=== PATIENT | female | born 1995 | race Caucasian/White ===

== ENCOUNTER 2017-08-16 10:23 | Emergency (ER) | payer OTHER ==
[~2017-08-16] VITALS: Ht 149.9 cm; Wt 61.6 kg
[2017-08-16 10:29] VITALS: TEMP 36.9; Ht 149.9 cm; Wt 61.6 kg
[2017-08-16] MEDS ORDERED: ONDANSETRON INJ 2 MG/ML 2 ML VIAL IV STA (11:34)
[2017-08-16] MEDS ORDERED: KETOROLAC TROMETHAMINE 30 MG/ML VIAL IV STA (11:34)
[2017-08-16] MEDS ORDERED: ALBUT/IPRATROP 3MG/0.5MG NEB 3 ML VIAL INH STA (11:34)
[2017-08-16] MEDS ORDERED: PSEUDOEPHEDRINE HCL 30 MG TAB PO STA (11:34)
[2017-08-16] MEDS ORDERED: METHYLPREDNISOLONE 125 MG VIAL IV STA (11:34)
[2017-08-16] MEDS ORDERED: SODIUM CHLORIDE 0.9% 1000ML 1,000 ML IV ONE (11:45)
[2017-08-16] MEDS ORDERED: BENZONATATE 100MG CAP PO ONE (11:45)
[2017-08-16] MEDS ORDERED: BCPILLS PO (12:36)
[2017-08-16] MEDS ORDERED: AMPH30CA3 PO (12:37)
--- NOTE | 2017-08-16 12:59 | DIAGNOSTIC IMAGING REPORT ---
PA CHEST RADIOGRAPH AND UPRIGHT AND SUPINE AP RADIOGRAPHS OF THE ABDOMEN CLINICAL HISTORY: URI symptoms and ongoing abdominal pain. COMPARISON STUDY: No previous studies for comparison. FINDINGS: Lung volumes are normal. Lungs are clear. No pneumothorax or pleural effusion is noted. Cardiac size is normal. Mediastinal contours are normal. There is no evidence for pulmonary edema. No free air is evident. The bowel gas pattern is normal. IMPRESSION: 1. No free air or evidence of bowel obstruction. 2. No acute cardiopulmonary findings. Electronically signed by: Jun Padron M.D. 08/16/2017 12:57 PM Dictated Date/Time: 08/16/2017 12:56 PM
[2017-08-16 13:04] LABS: BASO % 0.1 %; BASO ABS # 0.01 K/uL (0-0.2); EOS % 0.1 %; EOS ABS # 0.01 K/uL (0-0.5); HEMATOCRIT 40.5 % (37-47); HEMOGLOBIN 13.6 g/dL (12.0-16.0); IG# 0.02 K/uL (0.00-0.02); LYMPH % 5.1 %; LYMPH ABS # 0.34 K/uL (1.2-3.4); MEAN CELL VOLUME 91.8 fL (80-100); MEAN CORPUSCULAR HEMOGLOBIN 30.8 pg (25-34); MEAN CORPUSCULAR HGB CONC 33.6 g/dl (32-36); MEAN PLATELET VOLUME 9.6 fL (7.4-10.4); MONO % 5.6 %; MONO ABS # 0.38 K/uL (0.11-0.59); NEUT % 88.8 %; NEUT ABS # 5.97 K/uL (1.4-6.5); PLATELET COUNT 272 K/uL (130-400); RED CELL DISTRIBUTION WIDTH CV 12.7 % (11.5-14.5); RED CELL DISTRIBUTION WIDTH SD 42.8 fL (36.4-46.3); WHITE BLOOD COUNT 6.73 K/uL (4.8-10.8)
[2017-08-16 13:22] LABS: ALBUMIN 4.5 gm/dl (3.4-5.0); CALCIUM 9.9 mg/dl (8.5-10.1); CREATININE 0.84 mg/dl (0.60-1.20); POTASSIUM 3.3 mmol/L (3.5-5.1)
[2017-08-16 13:25] LABS: TOTAL PROTEIN 8.9 gm/dl (6.4-8.2)
[2017-08-16 13:50] LABS: INFLUENZA B ANTIGEN Neg for Influ B (NEG)
[2017-08-16] MEDS ORDERED: OSEL75CA12 PO (14:23)
[2017-08-16] MEDS ORDERED: ZNTT/150 PO (14:23)
[2017-08-16 14:56] VITALS: BP 123/79; PULSE 102; O2SAT 96
--- NOTE | 2017-08-17 00:24 | EMERGENCY ROOM VISIT NOTE ---
ED Visit Note First contact with patient: 11:17 Chief Complaint: I'm here for 2 things first last night he started having fevers , chills and headache and since I have been having stomach pain. History of Present Illness: Ms. Bianchi is a 22-year-old white female who ambulates into the ED accompanied by a male friend with complaining of upper respiratory tract symptoms and abdominal pain. Patient reports last night she felt like she had an acute onset of fever and then developed a bifrontal headache, nonproductive cough, chills and body aches. Since that time the symptoms have been constant. She describes her bifrontal headache as a throbbing sensation. She rates her discomfort 7/10. Her pain is nonradiating. She has not identified any aggravating or alleviating factors related to the pain. She has not taken a medication for pain prior to arrival at the hospital. Associated with her headache as previously noted she reports she has perceived fevers but has not checked her temperature, body aches predominantly in the thoracic back and larger joints, sinus congestion, nasal drainage, bilateral ear pressure, nonproductive cough Additionally she reports since , approximately 2 months ago, she reports she has been having daily abdominal pain associated with decreased appetite and vomiting. She places her abdominal pain in the deon-umbilical area. She describes her pain as a pressure sensation. At its worst she rates her discomfort 7/10. Her pain is nonradiating. The pain has not been constant but does wax and wane in intensity and seems more prominent shortly after waking. She has not taken any medications for pain prior to arrival at the hospital. The vomiting she reports as bilious. Historically patient does report while she was a teenager she overdosed on acetaminophen and did have some liver damage. She denies previous gastrointestinal disorders, abdominal surgeries, fevers, chills, sweats, chest pain, shortness of breath, diarrhea, constipation, rectal bleeding, black/tarry stools, urinary symptoms, hematuria, back/flank pain. Review of Systems: As noted above in history of present illness. All body systems were reviewed and found to be negative as noted above. Past Medical History: Attention deficit disorder, status post adenoidectomy. Current Medications: control, Adderall XR. Allergies to Medications: Patient denies. Social History: Patient is currently University student; she feels safe in her home environment; she denies tobacco use and admits to alcohol use. Physical Examination: Vital Signs: Date Time Temp Pulse Resp B/P (MAP) Pulse Ox O2 Delivery O2 Flow Rate FiO2 08/16/17 14:56 102 123/79 96 08/16/17 13:16 08/16/17 13:11 122 115/80 122 121/90 112 119/77 08/16/17 12:35 115 22 118/79 94 Room Air 08/16/17 10:29 36.9 121 20 113/73 99 Room Air GENERAL: 22-year-old female in mild to moderate distress due to pain, nontoxic- appearing, afebrile and hemodynamically stable. NEUROLOGICAL: Awake, alert and oriented to person, place and time. Answering questions appropriately and following commands. Normal gait. Good hand eye coordination. No focal motor or sensory deficits. SKIN: Warm, dry and pink. No soft tissue eruptions or trauma noted. HEENT: Atraumatic and normocephalic. Mild tenderness but no erythema over the frontal and maxillary sinuses. External ears are nontender. Auditory canals are pink and patent. Tympanic membranes are pearly carrizales with normal light reflex. PERRLA. Sclera white and conjunctiva pink. No drainage from naris, but audible congestion. Oral cavity moist and pink. Pharynx is nonerythematous or edematous. Speech normal and clear. No lymphadenopathy. Trachea midline. No jugular venous distention. No laryngeal tenderness. BACK: No tenderness over the bony spine. No nuchal rigidity or meningismus. Full range of motion of the cervical spine. No CVA tenderness. THORAX: Lungs sounds are clear to auscultation but decreased bilaterally in the bases. Equal bilaterally with symmetrical chest wall. No wheezing, rales or rhonchi. No crepitus, tenderness, subcutaneous air or deformities noted. HEART: Regular rate and rhythm. No gallops, rubs or murmurs are appreciated. ABDOMEN: Flat, soft and nontender. Positive bowel sounds in all quadrants. No guarding, rigidity or organomegaly. EXTREMITIES: Moves all extremities well on command and with purpose. All distal neurovascular statuses are intact and equal bilaterally. No calf tenderness or cords. ED Course: Patient is assessed as noted above per Patient's medication list was reviewed. Laboratory Testing: Test 08/16/17 00:00 08/16/17 12:12 1/29/18 12:17 Range/Units Urine Color YELLOW Urine Appearance CLEAR CLEAR Urine pH 7.5 4.5-7.5 Urine Specific [place] 1.007 1.000-1.030 Urine Protein NEG NEG Urine Glucose (UA) NEG NEG Urine Ketones 1+ NEG Urine Occult Blood NEG NEG Urine Nitrite NEG NEG Urine Bilirubin NEG NEG Urine Urobilinogen NEG NEG Urine Leukocyte Esterase NEG NEG Urine Test NEG NEG White Blood Count 6.73 4.8-10.8 K/uL Red Blood Count 4.41 4.2-5.4 M/uL Hemoglobin 13.6 12.0-16.0 g/dL Hematocrit 40.5 37-47 % Mean Corpuscular Volume 91.8 80-100 fL Mean Corpuscular Hemoglobin 30.8 25-34 pg Mean Corpuscular Hemoglobin Concent 33.6 32-36 g/dl Platelet Count 272 130-400 K/uL Mean Platelet Volume 9.6 7.4-10.4 fL Neutrophils (%) (Auto) 88.8 % Lymphocytes (%) (Auto) 5.1 % Monocytes (%) (Auto) 5.6 % Eosinophils (%) (Auto) 0.1 % Basophils (%) (Auto) 0.1 % Neutrophils # (Auto) 5.97 1.4-6.5 K/uL Lymphocytes # (Auto) 0.34 1.2-3.4 K/uL Monocytes # (Auto) 0.38 0.11-0.59 K/uL Eosinophils # (Auto) 0.01 0-0.5 K/uL Basophils # (Auto) 0.01 0-0.2 K/uL RDW Standard Deviation 42.8 36.4-46.3 fL RDW Coefficient of Variation 12.7 11.5-14.5 % Immature Granulocyte % (Auto) 0.3 % Immature Granulocyte # (Auto) 0.02 0.00-0.02 K/uL Sodium Level 133 136-145 mmol/L Potassium Level 3.3 3.5-5.1 mmol/L Chloride Level 99 98-107 mmol/L Carbon Dioxide Level 23 21-32 mmol/L Anion Gap 11.0 3-11 mmol/L Blood Urea Nitrogen 5 7-18 mg/dl Creatinine 0.84 0.60-1.20 mg/dl Est Creatinine Clear Calc Drug Dose 84.6 ml/min Estimated GFR () 115.1 Estimated GFR (Non- 99.4 BUN/Creatinine Ratio 6.0 10-20 Random Glucose 93 70-99 mg/dl Calcium Level 9.9 8.5-10.1 mg/dl Total Bilirubin 0.6 0.2-1 mg/dl Direct Bilirubin 0.1 0-0.2 mg/dl Aspartate Amino Transf (AST/SGOT) 18 15-37 U/L Alanine Aminotransferase (ALT/SGPT) 20 12-78 U/L Alkaline Phosphatase 42 45-117 U/L Total Protein 8.9 6.4-8.2 gm/dl Albumin 4.5 3.4-5.0 gm/dl Lipase 121 73-393 U/L Influenza Type A Antigen POS for Influ A NEG Influenza Type B Antigen Neg for Influ B NEG Acute Abdominal X-Ray Series: Was read by myself and the radiologist showing no acute infiltrates, effusions or pneumothorax. Normal heart silhouette and bony anatomy. Abdominal component shows no free air under the diaphragm, nonspecific bowel gas pattern without signs of obstruction. Patient was hydrated with normal saline and she received 4 mg of Zofran IV for nausea, 30 mg of Toradol IV for pain, 60 mg of pseudoephedrine for congestion, 200 mg of Tessalon Perles for cough, 125 mg of Solu-Medrol IV for inflammation and an albuterol/Atrovent nebulizer breathing treatment. Patient was reassessed multiple times during her stay in the emergency department. Patient's case was reviewed with Dr. Santiago; we agreed on diagnostic approach, treatment, disposition and plan. Patient was educated about today's findings and instructed on her treatment plan ; she verbalized understanding and agreement with this plan. Clinical Impression: Influenza A. Abdominal pain. Decision-Making: Initially my differential diagnosis I considered for her URI symptoms, influenza, pneumonia, bronchitis, sinusitis and other causes and for abdominal pain I considered gastroesophageal reflux, gastritis, soft vaginal stricture, hepatitis, pancreatitis and other causes. Disposition: Patient discharged home in stable condition accompanied by male friend; prior to departure she was reassessed and subjectively reported she was feeling much better. She rated her frontal headache a 3/10, reported resolution of nausea, no additional cough, resolution of abdominal pain. Plan: Patient was encouraged use 650 mg of acetaminophen every 6 hours as needed for pain or fevers. Patient was prescribed Tamiflu 75 mg 2 times a day for 5 days. Patient is encouraged to use [id number] decongestants like pseudoephedrine for congestion. Patient was encouraged to bland diet for the next 48 hours and avoid gastrointestinal irritants until followed up with gastroenterology. Patient was prescribed Zantac 125 mg 2 times a day for 10 days. Patient was encouraged to stay well-hydrated with increased clear fluids. Patient was encouraged to follow-up with [facility] for recheck in 2-3 days. Patient was encouraged to follow-up with Dr. Rai, gastroenterology for definitive care and treatment. Patient was encouraged return ED for worsening symptoms, uncontrolled fevers, shortness of breath/wheezing, worsening abdominal pain, worsening vomiting, bloody stools, bloody vomitus or any new/concerning symptoms.
== END 2017-08-16 14:45 | disposition home or self-care (01) ==
LOC: C.EDB 10:27
DX: J11.1 Influenza due to unidentified influenza virus with other respiratory manifestations (principal); R10.9 Unspecified abdominal pain; R41.840 Attention and concentration deficit

== ENCOUNTER → 2017-10-12 | Outpatient (CLI) | payer OTHER ==
[~2017-10-12] MED LIST: AMPH30CA3 PO; BCPILLS PO
--- NOTE | 2017-10-12 08:07 | DIAGNOSTIC IMAGING REPORT ---
ABDOMEN COMPLETE (US) CLINICAL HISTORY: 22 years-old Female presenting with EPIGASTRIC PAIN. TECHNIQUE: Real-time grayscale and limited color Doppler ultrasound imaging of the abdomen was performed. COMPARISON: None. FINDINGS: Pancreas: Largely obscured due to overlying bowel gas. Liver: Normal echogenicity and echotexture. No sonographic evidence of hepatic mass. Main portal vein patent with normal directional flow. Biliary: No intrahepatic biliary ductal dilatation. Common bile duct measures up to 4 mm in diameter. Gallbladder: No evidence of gallstones, gallbladder wall thickening, gallbladder distention, or pericholecystic fluid or inflammatory change. Spleen: Normal in echogenicity and size, measuring 11.1 cm in length. Kidneys: Normal in size and echogenicity. Right kidney measures 10.2 cm, and left kidney measures 9.3 cm. No hydronephrosis. Vasculature: Visualized portions of the IVC and abdominal aorta normal. Distal aorta and aortic bifurcation not visualized due to overlying bowel gas. Ascites: None. IMPRESSION: Normal sonographic examination of the abdomen. Electronically signed by: Prasanna Woo M.D. 10/12/2017 8:06 AM Dictated Date/Time: 10/12/2017 8:00 AM
== END | disposition home or self-care (01) ==
LOC: C.ULTR 07:23
PROVIDERS: ATTEND Internal Medicine Gastroenterology
DX: R10.13 Epigastric pain (principal); R11.10 Vomiting, unspecified